=== PATIENT | male | born 1975 | race African-American/Black ===

== ENCOUNTER 2018-07-14 02:31 | Emergency (ER) | payer BC ==
[~2018-07-14] VITALS: Ht 198.1 cm; Wt 110.2 kg
[2018-07-14 02:49] VITALS: BP 119/74
--- NOTE | 2018-07-14 03:05 | ER.PDOC ---
General Chief Complaint: Skin Rash/Abscess Stated Complaint: RASH, VOMITING Time seen by MD: 02:40 Source: patient Exam Limitations: no limitations History of Present Illness Initial Comments 43 y/o male, PMHx of DMT2, was camping and was feeling "run down" with low energy today, ate some pistachios around 1hr prior to symptoms, then about an hour later woke up with intense itching and hive the proceeded to an episode of vomiting. gave him 50mg of Diphenhydramine and by the time the patient had arrived to the ED the nausea had resolved, pruritis had resolved, and patient's hives had largely resolved. feels "cold" but otherwise denies any further symptoms. Besides the local camping the patient denies any recent travel, no sick contact, no foods/soaps/detergents or other new environmental substance, no known bug allergies. Vital Signs First Vital Signs Date Time Temp Pulse Resp B/P (MAP) Pulse Ox O2 Delivery O2 Flow Rate FiO2 07/14/18 02:43 98.0 73 18 97 Room Air 98.0 07/14/18 02:49 119/74 (89) Last Vital Signs Date Time Temp Pulse Resp B/P (MAP) Pulse Ox O2 Delivery O2 Flow Rate FiO2 07/14/18 02:49 98.0 71 16 119/74 (89) 97 Room Air 98.0 Past Medical History Medical History: diabetes Surgical History: no surgical history Family History Significant Family History: no pertinent family hx Social History Smoking: cigarettes, greater than 1 pack/day Alcohol Use: occassionally Drug Use: none Constitutional: chills; denies diaphoresis, denies fever EENTM: denies nose congestion, denies throat pain, denies throat swelling Respiratory: denies cough, denies orthopnea, denies shortness of breath Cardiovascular: denies chest pain, denies edema, denies syncope Gastrointestinal: denies abdomen distended, denies abdominal pain, denies constipated, denies diarrhea; nausea, vomiting Genitourinary: denies flank pain, denies hematuria Musculoskeletal: denies back pain, denies joint swelling Skin: denies change in color; other (hives) Psychiatric/Neurological: no symptoms reported Endocrine: no symptoms reported Hematologic/Lymphatic: no symptoms reported All Other Systems: Reviewed and Negative Physical Exam Comments PHYSICAL EXAM: Vital Signs: please see electronic medical record. General: the patient is pleasant, resting comfortably, no obvious distress. HEENT: Patient normocephalic, atraumatic, PERRL. Moist mucous membranes. Eyes: No injection, no significant icterus, otherwise normal. Neck: Gross observation of the neck is unremarkable. Neck is supple, no cervical lymphadenopathy. Respiratory: Clear to auscultation without rales, rhonchi or wheezes. Cardiovascular: Regular rate and rhythm, no gallops, rubs or murmurs appreciated on this exam. GI: Abdomen is soft, nontender and nondistended without mass or hepatosplenomegaly. Neuro: The pt is awake. Alert and oriented. Grossly normal neurological exam. Psych: Normal Affect, normal speech. Skin: Exposed skin is within normal limits MS: No obvious muscular asymmetry Progress Progress Patient presents with an allergic reaction likely secondary to unknown allergen. I see no evidence for baron anaphylaxis at this time and the patient had a widely patent airway throughout their time under my care. The patient was observed without worsening of symptoms. Pt's symptoms so minor does not appear to need steroids or Epi-pen given lack of any airway involvement, resolution with home diphenhydramine. Extensive counseling was given to the patient regarding worsening allergic symptoms and airway compromise. The patient was instructed to follow up with primary physician in the near future for a recheck. 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 The patient agrees to return immediately if symptoms return or new symptoms arise. Departure Time of Disposition: 02:45 Disposition: 01 HOME, SELF-CARE Impression: Primary Impression: Vomiting Additional Impression: Allergic reaction Condition: Stable Patient Instructions: Pruritus, Nausea and Vomiting, [id number] Duration or Time Spent with Pa: 15 Problem Qualifiers LEON WOODRUFF D0 Jul 14, 2018 03:05
[2018-07-14 03:20] VITALS: BP 119/74
== END 2018-07-14 03:19 | disposition home or self-care (01) ==
LOC: ER 02:31
DX: T78.40XA Allergy, unspecified, initial encounter (principal); R11.10 Vomiting, unspecified; E11.9 Type 2 diabetes mellitus without complications; F17.210 Nicotine dependence, cigarettes, uncomplicated; X58.XXXA Exposure to other specified factors, initial encounter
CPT/HCPCS: 99282; 99284